=== PATIENT | female | born 1990 | race Two or more races ===

== ENCOUNTER 2023-10-06 12:37 | Emergency (ER) | payer MEDICAID, SELFPAY ==
--- NOTE | ~2023-10-06 | US_ITS ---
EXAMINATION: US OB <=14 wk fetus w TV DATE: 10/06/2023 INDICATION: Bleeding during first trimester TECHNIQUE: Real-time pelvic ultrasound utilizing both a transvaginal and transabdominal probe was pe rformed. The interpreting radiologist was not present for the study. COMPARISON: None. FINDINGS: The uterus measures 10.9 x 7.1 x 8.7 cm. There is an intrauterine gestational sac. A single po le is identified with crown rump length measuring 2.4 cm, which correlates with an estimated gestatio nal age of 9 weeks and 0 days. heart motion is identified measuring 182 beats per minute (bpm) by M-mode Doppler. 2.9 x 2.1 x 1.2 cm hypoechoic region extend caudally from the gestational sac like ly representing a small subchorionic hematoma with blood extending into the endometrial canal. The right ovary measures 3.6 x 2.3 x 3.6 cm. The left ovary measures 3.8 x 1.9 x 2.5 cm. Vascular jd w identified in both ovaries on color Doppler. There is trace amount of anechoic free fluid around th e right ovary. IMPRESSION: 1. Single living fetus with heart rate of 182 bpm. 2. Gestational age by ultrasound of 9 weeks 0 day(s) +/- 6 day(s) with ultrasound estimated date of delivery (DEANGELO) of 05/10/2024. 3. Likely small subchorionic hematoma along the caudal margin of the gestational sac contiguous with some blood in the more caudal endometrial canal. Reviewed, dictated and finalized at location A. IMPRESSION: 1. Single living fetus with heart rate of 182 bpm. 2. Gestational age by ultrasound of 9 weeks 0 day(s) +/- 6 day(s) with ultraso und estimated date of delivery (DEANGELO) of 05/10/2024. 3. Likely small subchorionic hematoma along the caudal margin of the gestationa l sac contiguous with some blood in the more caudal endometrial canal.
[2023-10-06 12:39] VITALS: BP 102/64; PULSE 88; RESP 16; TEMP 36.3; O2SAT 100
[2023-10-06 14:06] LABS: Basophils Percent Auto 0.5 % (0.2-1.2); Eosinophils Absolute Auto 0.3 K/mm3 (0-0.3); Eosinophils Percent Auto 3.9 % (0-4.4); Hematocrit 36.5 % (37.0-47.0); Hemoglobin 12.5 g/dL (12.0-15.0); Immature Granulocyte Absolute 0.02 K/mm3 (0.00-0.031); Immature Granulocyte Percent A 0.3 % (0-0.5); Lymphocytes Absolute Auto 2.05 K/mm3 (0.9-3.2); Lymphocytes Percent Auto 25.8 % (18.3-44.2); Mean Corpuscular HGB Conc 34.2 g/dl (32-36); Mean Corpuscular Hemoglobin 31.3 pg (26-34); Mean Corpuscular Volume 91.3 fl (80-100); Mean Platelet Volume 11.4 fl (7.4-10.4); Monocytes Absolute Auto 0.5 K/mm3 (0.1-0.6); Monocytes Percent Auto 6.3 % (2.6-8.5); Neutrophils Percent Auto 63.2 % (45.5-73.1); Platelet Count Result 232 k/mm3 (150-375); Red Cell Distribution Width 12.2 % (11.5-14.5)
[2023-10-06 14:22] LABS: INR 1.1; Prothrombin Time 14.4 Seconds (11.1-14.7)
[2023-10-06 14:23] LABS: Alanine Aminotransferase 10 U/L (6-35); Albumin Level 4.1 g/dL (3.5-5.1); Alkaline Phosphatase 47 U/L (38-126); Anion Gap 10 mmol/L (4-12); Aspartate Amino Transferase 18 U/L (14-36); Bilirubin,Total 0.4 mg/dL (0.2-1.3); Blood Urea Nitrogen 8 mg/dL (7-17); Calcium 8.7 mg/dL (8.4-10.2); Carbon Dioxide 20 mmol/L (22-30); Chloride 103 mmol/L (98-107); Estimated CRCL calculation 130 ml/min; Estimated Glomerular Filt Rate > 60; Glucose 93 mg/dL (65-110); Sodium 133 mmol/L (137-145)
[2023-10-06 14:24] LABS: Partial Thromboplastin Time 27.7 Seconds (22.3-36.8)
--- NOTE | 2023-10-06 14:27 | ED.PREGNANCY ---
HPI - General Chief complaint: Vaginal Bleeding Stated complaint: 10 weeks , vaginal bleeding Time Seen by Provider: 10/06/23 13:39 Source: patient Mode of arrival: ambulatory Limitations: no limitations History of Present Illness HPI Narrative: This is a 33 year old female that presents to the ER for vaginal spotting. Reports she is about 10 weeks . Has had some spotting the last week. She does not have an OB yet this . She has had an US prior to having spotting. Denies fever, abdominal pain, vomiting. Related Data Home Medications Medication Instructions Recorded Confirmed No Home Medications 10/06/23 10/06/23 Allergies Allergy/AdvReac Type Severity Reaction Status Date / Time No Known Allergies Allergy Verified 10/06/23 14:11 Review of Systems Review of Systems: CONSTITUTIONAL: Denies fever GASTROINTESTINAL: Denies abdominal pain, nausea, vomiting GENITOURINARY: Denies dysuria All systems reviewed & are unremarkable except as noted in HPI and below PMFSH Past Medical History Medical History (Updated 10/06/23 @ 17:00 by Martha Mcdonald PA-C) No active medical problems Social History Social History (Updated 10/06/23 @ 14:34 by Martha Mcdonald PA-C) Smoking status: Never smoker Exam Narrative: GENERAL: Well-appearing, well-nourished, and in no acute distress. HEAD: Normocephalic, atraumatic. EYES: EOMI. CHEST: Clear to auscultation. No respiratory distress. No wheezes rales or rhonchi HEART: Regular rate and rhythm. No murmur heard. Normal peripheral pulses. ABDOMEN: Soft, nontender, nondistended, normal active bowel sounds. EXTREMITIES: Normal range of motion. No edema. SKIN: Warm, dry, no rash. NEURO: No focal deficits. Alert and oriented x3. PSYCH: Normal mood and affect Course Course Emergency Course: Patient and family updated on workup and agree with plan of care Vital Signs Vital signs: Vital Signs Temperature 97.3 F L 10/06/23 12:39 Pulse Rate 88 10/06/23 12:39 Respiratory Rate 16 10/06/23 12:39 Blood Pressure 102/64 10/06/23 12:39 Pulse Oximetry 100 10/06/23 12:39 Oxygen Delivery Room Air 10/06/23 12:39 Temperature 97.3 F L 10/06/23 12:39 Pulse Rate 88 10/06/23 12:39 Respiratory Rate 16 10/06/23 12:39 Blood Pressure 102/64 10/06/23 12:39 Pulse Oximetry 100 10/06/23 12:39 Oxygen Delivery Room Air 10/06/23 12:39 MDM - OB/Uterine Contractions MDM Narrative Medical decision making narrative: Patient presents to the emergency department for vaginal spotting in first-trimester . Her vitals are stable. Hemoglobin is normal. Patient is A positive. Quantitative beta HCG 226, 480. Obstetric ultrasound shows a single living fetus with heart rate of 182. Also a small subchorionic hemorrhage. Patient updated on workup and agrees with plan of care. Will be given follow-up with OB. She was given warnings to return to the ER Differential Diagnosis Differential diagnosis: Likely other (Threatened miscarriage, miscarriage, subchorionic hemorrhage) Lab Data Attestation: I reviewed the patient's lab results. 10/06/23 13:58 10/06/23 13:58 Labs: Lab Results 10/06/23 Range/Units 13:58 WBC 8.0 (4.5-10.0) K/mm3 RBC 4.00 L (4.2-5.4) M/mm3 Hgb 12.5 (12.0-15.0) g/dL Hct 36.5 L (37.0-47.0) % MCV 91.3 (80-100) fl MCH 31.3 (26-34) pg MCHC 34.2 (32-36) g/dl RDW 12.2 (11.5-14.5) % Plt Count 232 (150-375) k/mm3 MPV 11.4 H (7.4-10.4) fl Immature Gran % (Auto) 0.3 (0-0.5) % Neut % (Auto) 63.2 (45.5-73.1) % Lymph % (Auto) 25.8 (18.3-44.2) % [place] % (Auto) 6.3 (2.6-8.5) % Eos % (Auto) 3.9 (0-4.4) % Baso % (Auto) 0.5 (0.2-1.2) % Lymph # (Auto) 2.05 (0.9-3.2) K/mm3 [place] # (Auto) 0.5 (0.1-0.6) K/mm3 Eos # (Auto) 0.3 (0-0.3) K/mm3 Baso # (Auto) 0.0 (0.0-0.1) K/mm3 Abs Immat Gran (auto) 0.02 (0.00-0.031
[2023-10-06 17:14] VITALS: BP 98/62; PULSE 64; RESP 16; O2SAT 100
== END 2023-10-06 17:15 | disposition home or self-care (01) ==
PROVIDERS: Emergency Provider Physician Assistant
DX: O20.9 Hemorrhage in early pregnancy, unspecified (principal); Z3A.09 9 weeks gestation of pregnancy
CPT/HCPCS: 36415; 76801; 76817; 80053; 84702; 85025; 85461; 85610; 85730; 86850; 86900; 86901; 99284

== ENCOUNTER 2024-04-14 14:00 | Outpatient (CLI) | payer MEDICAID, SELFPAY ==
--- NOTE | 2024-04-14 14:15 | ECG_ITS ---
Test Date: 2024-04-14 14:26:09 Measurements Intervals [place] Rate: 94 P: 43 TX: 125 QRS: 42 QRSD: 78 T: 27 QT: 350 QTc: 438 Interpretive Statements SINUS RHYTHM No previous ECG available for comparison Electronically Signed On 04-14-2024 14:34:54 [employer] by Orquidea Mills
== END 2024-04-14 14:01 | disposition home or self-care (01) ==
PROVIDERS: Visit Provider Obstetrics & Gynecology
DX: R00.2 Palpitations (principal)
CPT/HCPCS: 93005

== ENCOUNTER 2024-05-03 13:15 | Outpatient (CLI) | payer OTHER, SELFPAY ==
[2024-05-03 13:36] LABS: Hematocrit 34.8 % (37.0-47.0); Hemoglobin 11.3 g/dL (12.0-15.0); Mean Corpuscular HGB Conc 32.5 g/dl (32-36); Mean Corpuscular Hemoglobin 29.7 pg (26-34); Mean Corpuscular Volume 91.6 fl (80-100); Platelet Count Result 179 k/mm3 (150-375); Red Cell Distribution Width 13.8 % (11.5-14.5)
[2024-05-04 06:39] LABS: Rapid Plasma Reagin Non-Reactive (NonReactive)
== END 2024-05-03 13:16 | disposition home or self-care (01) ==
LOC: ANHLAB 13:18
PROVIDERS: Visit Provider Obstetrics & Gynecology
DX: Z34.93 Encounter for supervision of normal pregnancy, unspecified, third trimester (principal); Z3A.00 Weeks of gestation of pregnancy not specified
CPT/HCPCS: 36415; 85027; 86592; 86850; 86900; 86901

== ENCOUNTER 2024-05-04 05:46 | Inpatient (IN) | payer MEDICAID, SELFPAY ==
--- NOTE | 2024-05-02 15:39 | HP_ITS ---
This report was moved to the correct visit on 05/09/2024. The original report was signed by Gokul Almazan MD on 05/02/24 1539. H&P: HPI History of Present Illness Date/Time: 05/02/24 15:37 Chief Complaint: Term with previous section Narrative: 34-year-old 2 para 1 at39+ weeks gestation for repeat section. has been uncomplicated. She has had previous section. Risks and benefits reviewed Review of Systems Review of Systems: CONSTITUTIONAL: Denies fever GASTROINTESTINAL: Denies abdominal pain, nausea, vomiting GENITOURINARY: Denies dysuria All systems reviewed & are unremarkable except as noted in HPI and below PMFSH Past Medical History Medical History No active medical problems Social History Social History Smoking status: Never smoker Meds Home Medications and Allergies Home Medications ?Medication ?Instructions ?Recorded ?Confirmed ?Type No Home Medications 10/06/23 10/06/23 History Allergies Allergy/AdvReac Type Severity Reaction Status Date / Time No Known Allergies Allergy Verified 10/06/23 14:11 Exam Const: General: cooperative, healthy appearing and comfortable Nutritional Appearance: average body habitus Orientation/consciousness: oriented to person, oriented to place and oriented to time HENMT: Head: normal to inspection Resp: Effort & Inspection: normal respiratory effort Cardio: Rate: regular rate Rhythm: regular rhythm Heart sounds: S1 normal heart sound present and S2 normal heart sound present GI: Inspection: normal to inspection (Gravid soft uterus) : Speculum Exam - Vagina: normal appearance of the vagina Speculum Exam - Cervix: normal appearance of the cervix Bimanual exam- vagina & uterus: enlarged (Soft gravid uterus) Assessment and Plan Assessment and plan (1) Term : Code(s): Z34.90 - Encounter for supervision of normal , unspecified, unspecified trimester Status: Acute (2) Previous section: Code(s): Z98.891 - History of uterine scar from previous surgery Status: Acute Plan Proceed with repeat low-transverse section Please be advised this is a medical document. It is intended for [id number] communication. It is written in medical language and may contain unfamiliar abbreviations or verbiage. Medical documents are intended to carry relevant information, facts as evident, and the clinical opinion of the practitioner at the time of the encounter. This report may have been done utilizing a voice recognition system. Attempts have been made to correct errors. However, there may be uncorrected grammatical, spelling, and recognition errors present. The file time of this note does not necessarily represent the time the patient was seen. Report Initialized date/time: Gokul Almazan MD 05/02/241538 Electronically signed by: Gokul Almazan MD 05/02/241538 [facility]
[2024-05-04] VITALS (45 sets, daily range): BP systolic 95–148; BP diastolic 60–118; PULSE 64–121; RESP 12–18; TEMP 36.1–37.7; O2SAT 82–100; BMI 26.5
--- NOTE | 2024-05-04 06:21 | WPDHPUPDATE1 ---
History and Physical Update Update Date/Time: 05/04/24 06:21 History and Physical has been reviewed, including an updated exam of the patient. There are NO changes in the patient's condition. Risks, benefits, and alternatives have been discussed and questions answered. Patient agrees to proceed with procedure.
[2024-05-04] MEDS: ACETAMINOPHEN 500 MG TABLET 1000 MG PO (06:22)
[2024-05-04] MEDS: LACTATED RINGERS 1,000 ML 125 ML IV CONT ×2 (06:22→07:14)
[2024-05-04 07:25] LABS: HIV 1/2 Ab P24 Ag Result Negative (Negative)
[2024-05-04] MEDS: ONDANSETRON INJ 4 MG/2 ML VIAL IV PUSH (07:25)
[2024-05-04] MEDS: FAMOTIDINE 20 MG/2 ML VIAL IV PUSH (07:25)
[2024-05-04] MEDS: ceFAZolin 2 GM/D5W 50 ML 2 GM/50 ML BAG IVPB (07:33)
--- NOTE | 2024-05-04 08:26 | W.PM.OBCSD ---
OB - Delivery Note Procedure Delivery date: 05/04/24 Pre-op diagnosis: Previous Delivery Post-op Diagnosis: Same Induction method: None Delivery monitor: External FHT Prior to decision for section, ACOG/SMFM labor guidelines were considered and discussed with the patient and staff. Decision made to proceed with the section.: Yes Procedure Performed: Repeat Surgeon: Gokul Contreras MD Anesthesia type: Spinal Description of Procedure/Findings: The patient was prepped draped in the normal sterile fashion placed in a supine position. Under excellent spinal anesthetic the abdomen was entered through previous Pfannenstiel incision. This was carried to the fascia the fascia was opened upward outward fashion bilaterally. Underlying lower muscles sharply dissected. Parietal peritoneum 0 by Rosemarie clamps and by sharp dissection carried superiorly and inferiorly dome of the bladder. Bladder blade placed and bladder flap formed. Bladder blade returned a low transverse incision made the head delivered the JULIENNE position. Anterior posterior shoulder delivered spontaneously. Cord clamped was cut and passed off the table with an excellent cry. Placenta delivered intact manually uterus delivered from the abdomen wrapped in a moist towel. After assuring no membranes or debris uterus, the uterus was closed with continuous running for lateral edge to lateral edge this was followed by 2nd imbricating running locking 0 Vicryl from lateral edge to lateral edge hemostasis was assured. Ovaries and tubes appeared within normal limits in the uterus returned to the abdomen. After inspecting the ovaries and tubes to be normal. Laps removed and accounted for. The fascia closed with continuous running 0 Vicryl from lateral edge to lateral edge. Irrigation subcutaneous layer and the skin closed with 4-0 Monocryl and glue QBL was 300cc. All sponge, needle, instrument counts were correct. There were no immediate complications Estimated Blood Loss: 300 Drains: No Packing: No Pathology: None sent Complications: No immediate complications Condition: Stable Disposition: PACU Baby Date of : 05/04/24 Time of : 08:01 Gestational Age by Date: 39 gender: Female Weight (pounds): 7 Weight (ounces): 0 presentation: vertex position: Right Occiput Anterior Placenta delivery description: Manual Removal Cord Vessel Description: 3 Vessels score one minute: 8 score five minutes: 9
--- NOTE | 2024-05-04 08:28 | P.DS_ITS ---
<Statement entered by Gokul Contreras MD - 05/09/24 06:46> This documentation has been reviewed and approved. DS: Admitting Diagnosis Discharge Date 05/07/2024 Admitting Diagnosis Term /previous section DS: Discharge Diagnosis Discharge Diagnosis (1) Term : Code(s): Z34.90 - Encounter for supervision of normal , unspecified, unspecified trimester Status: Acute (2) Previous section: Code(s): Z98.891 - History of uterine scar from previous surgery Status: Acute DS: Summary Hospital Course Reason for hospitalization: Patient was admitted for repeat section on 05/04/2024. Hospital Course: The patient's hospital course unremarkable. She remained afebrile. She was up, voiding without difficulty, eating regular diet, ambulating, and generally without complaints. Time Spent with Patient Time attestation: Total time spent providing and/or coordinating discharge services: Exam Const: General: cooperative, healthy appearing and comfortable Nutritional Appearance: average body habitus Orientation/consciousness: oriented to person, oriented to place and oriented to time Resp: Effort & Inspection: normal respiratory effort Cardio: Rate: regular rate Rhythm: regular rhythm Heart sounds: S1 normal heart sound present and S2 normal heart sound present GI: Inspection: normal to inspection and incision (Wound clean dry and intact) DS: Data Data Completed and Pending Labs on day of discharge: Labs from last 24 hours 05/04/24 06:07 HIV 1&2 Ab/P24 Ag 4thGn Negative Discharge Plan Discharge Attending physician on discharge: Gokul Almazan Discharging Clinician: Kaya Liang Patient Disposition: Home, Self-Care Activity: may shower, may drive after 2 weeks and pelvic rest Diet: regular Wound Care Instructions: incision open to air Discharge Instructions: Education: Mom and Baby Guide Given to: Mother Follow-Up: Call your delivering provider's office for an appointment to be seen in: call your OB to schedule your follow up appointmemt Mom [facility] follow-up appointment. Appointment Date/Time: May 10, 2024 at 10:00 am What to expect at your follow-up visit: Blood Pressure Check Physical Assessment Call [phone] if you are unable to keep your appointment time. BREAST CARE: * Wear a snug supportive bra. * For engorgement discomfort: Breast Feeding: * Apply warm moist washcloths * Express milk as needed to relieve engorgement * Wear loose clothing Bottle Feeding: * May apply ice packs * For sore nipples: * Identify correct latch-on * Apply warm moist washcloths before and after nursing * Air dry nipples after nursing * May apply Lansinoh cream to nipples ABDOMINAL INCISION: (if applicable) * Allow incision to air dry * Do NOT use lotions for powders on your incision * When showering, allow soap and water to run over the incision, but do not wash incision PERINEAL CARE: * Until bleeding stops, use your luly bottle after urinating * Change your pad frequently throughout the day * You may take sitz baths several times a day (fill your bathtub with warm water and soak for 20 minutes.) Do NOT bathe in the water * No tub baths until seen by your physician - You may shower ACTIVITY: * Rest as much as possible. * Do not exercise or lift anything heavier than your baby (such as laundry or other children.) * Avoid stairs or driving as much as possible. * Do not put anything into the vagina. No douching, tampons, or sexual activity until seen by physician. NOTIFY PHYSICIAN IF YOU HAVE ANY QUESTIONS OR IF ANY OF THE FOLLOWING SYMPTOMS OCCUR: * If your incision becomes red, swollen, or more painful than what you have experienced in the hospital. * If your vaginal bleeding becomes foul smelling. * If your vaginal bleeding becomes more heavy than a period or if your bleeding changes from pink to bright red. However, you may pass an occasional walnut- sized clot once or twice for the first week . * If you experience a sharp, shooting pain in you calves. * If you discover a hard, reddened area on your breast or if you experience flu- like symptoms. DIET: * Eat regular, well-balanced meals. * Drink plenty of fluids daily. If , drink to thirst.Call or return if temperature above 100.4? F, increased abdominal pain, increased vaginal bleeding or any new problems. OK to take calcium and magnesium. Ok to take Tylenol as bottle instructs. Continue vitamin and Vitamin D. Patient Language: Moldovan Stand Alone Forms: General Discharge Information Follow-up/Referrals: Gokul Almazan MD [Physician] - 4 Weeks Discharge Medications: New hydrocodone-acetaminophen 5-325 mg tablet 1 tablet PO Q4H PRN (Reason: pain) Qty: 20 0RF ibuprofen 600 mg tablet 600 mg PO Q6H PRN (Reason: cramps) Qty: 30 0RF ferrous sulfate 325 mg (65 mg iron) tablet 325 mg PO DAILY Qty: 30 0RF No Action No Home Medications Date of admission: 05/04/24 05:46 Primary Care Provider: UNKNOWN,DOCTOR Admitting Provider: Gokul Almazan Attending physician on admission: Gokul Almazan Condition: Stable
[2024-05-04] MEDS: OXYTOCIN 30 UNITS/NS 500 ML 30 UNITS/500 ML BAG 125 UNITS IV CONT (10:02)
--- NOTE | 2024-05-04 11:30 | PC.NURSE ---
Patient newly admitted to . Requested assistance with . When entering the room, mom is supine with baby side-lying and baby is latched and suckling. Baby is vigorous and does sometimes get distracted by her hands. The latch is off and on but mom says it is not painful and baby easily returns to the breast after trying to suck on her hands. Mom did breastfeed her first baby. Encouraged mom to allow baby as much access to the breast as desired and that baby can feed at the breast for as long as she likes. If baby sleeps longer than three hours, mom is instructed to place baby skin to skin and wake her to feed. Name and number on communication board. Reported to primary RN.
[2024-05-04] MEDS: ACETAMINOPHEN 325 MG TABLET 650 MG PO ×2 (13:01→19:41)
[2024-05-04] MEDS: SIMETHICONE 80 MG TAB.CHEW PO ×2 (13:01→19:41)
[2024-05-04] MEDS: KETOROLAC 15 MG/ML VIAL (*BKC) IV PUSH ×2 (13:01→19:41)
--- NOTE | 2024-05-04 17:30 | PC.NURSE ---
Parents requested assistance with feeding. Baby has been sleeping and it has been 4 hours since the last . Mom has baby swaddled on her chest so we moved her to the crib, unwrapped and changed a diaper. Baby woke easily and rooted. She was placed on the left breast in laid back and latched with minimal assistance from mom. She suckled vigorously and consistently. Encouraged keeping baby awake for at least 15 minutes. Parents educated on the diaper lines that turn blue with urine. After for 25 minutes, dad was shown how to swaddle baby and reapply her hat. She also had another wet diaper. Parents asked about burping and we discussed that it should be tried for a minute or two but if baby doesn't burp that is ok. There is some language barrier but with concise and slow education, both parents were able to understand and acknowledge the education provided. Reported to primary RN.
[2024-05-05 00:29] VITALS: BP 102/64; PULSE 79; RESP 14; TEMP 36.7; O2SAT 100
[2024-05-05] MEDS: KETOROLAC 15 MG/ML VIAL (*BKC) IV PUSH ×2 (01:43→08:18)
[2024-05-05] MEDS: ACETAMINOPHEN 325 MG TABLET 650 MG PO ×4 (01:44→20:46)
[2024-05-05 03:30] VITALS: BP 98/70; PULSE 73; RESP 18; TEMP 37.2; O2SAT 99
[2024-05-05] MEDS: LIDOCAINE 5% PATCH 1 PATCH TRANSDERM (05:20)
[2024-05-05 05:34] LABS: Basophils Percent Auto 0.2 % (0.2-1.2); Eosinophils Absolute Auto 0.2 K/mm3 (0-0.3); Eosinophils Percent Auto 2.3 % (0-4.4); Hematocrit 30.8 % (37.0-47.0); Hemoglobin 9.9 g/dL (12.0-15.0); Immature Granulocyte Absolute 0.05 K/mm3 (0.00-0.031); Immature Granulocyte Percent A 0.6 % (0-0.5); Lymphocytes Absolute Auto 1.45 K/mm3 (0.9-3.2); Lymphocytes Percent Auto 17.3 % (18.3-44.2); Mean Corpuscular HGB Conc 32.1 g/dl (32-36); Mean Corpuscular Hemoglobin 29.6 pg (26-34); Mean Corpuscular Volume 91.9 fl (80-100); Mean Platelet Volume 11.9 fl (7.4-10.4); Monocytes Absolute Auto 0.6 K/mm3 (0.1-0.6); Monocytes Percent Auto 7.4 % (2.6-8.5); Neutrophils Absolute Auto 6.1 K/mm3 (1.3-6.7); Neutrophils Percent Auto 72.2 % (45.5-73.1); Platelet Count Result 162 k/mm3 (150-375); Red Blood Count 3.35 M/mm3 (4.2-5.4); Red Cell Distribution Width 13.7 % (11.5-14.5); White Blood Count 8.4 K/mm3 (4.5-10.0)
[2024-05-05 07:26] VITALS: BP 105/67; PULSE 71; RESP 15; TEMP 36.7; O2SAT 100
[2024-05-05] MEDS: DOCUSATE SODIUM 100 MG CAPSULE PO ×2 (08:19→17:27)
[2024-05-05] MEDS: MULTIVIT/MIN/PREN/FOL AC/IRON TABLET 1 TAB PO (08:19)
[2024-05-05] MEDS: SIMETHICONE 80 MG TAB.CHEW PO ×3 (08:19→17:27)
[2024-05-05] MEDS: POLYSACCHARIDE IRON COMPLEX 150 MG CAPSULE PO ×2 (08:19→17:27)
--- NOTE | 2024-05-05 11:09 | WPDANLDPN2 ---
Anes-Prog Note L&D Date/Time: 05/05/24 11:09 Comfortable throughout: section Neuraxial method: spinal Epidural/Spinal procedure site: clean & non-tender Neuro status: Neuro function grossly intact. Cardiovascular status: normal Respiratory status: normal Airway patency: baseline Mental status: baseline Post-Op hydration status: normal Vital Signs: Last Vital Signs Temp 98.1 F 05/05/24 07:26 Pulse 71 05/05/24 07:26 Resp 15 05/05/24 07:26 BP 105/67 05/05/24 07:26 Pulse Ox 100 05/05/24 07:26 O2 Del Method Room Air 05/04/24 10:45 Pain score (VAS): 0/10 I/O: Intake & Output 05/04/24 05/05/24 05/05/24 23:59 07:59 15:59 Intake Total 500 Output Total 1700 Balance -1200 Post-procedural complaints: none Patient feedback: Patient satisfied with anesthetic care.
--- NOTE | 2024-05-05 11:10 | WPDANLDNPN2 ---
Anes-Prog Note L&D-Neuraxial Date/Time: 05/05/24 11:10 Neuraxial medications: intrathecal PF morphine Opiod-related complaints: none Patient feedback: Patient satisfied with post-operative pain management.
--- NOTE | 2024-05-05 11:53 | P.PNOB_ITS ---
OB - PN: Subj Subjective Date/time seen: 05/05/24 11:53 Narrative: Pain OK. Tolerating diet. OB - PN: Obj Data Labs 05/05/24 03:34 Labs: Laboratory Results - last 24 hr 05/05/24 03:34 WBC 8.4 RBC 3.35 L Hgb 9.9 L Hct 30.8 L MCV 91.9 MCH 29.6 MCHC 32.1 RDW 13.7 Plt Count 162 MPV 11.9 H Immature Gran % (Auto) 0.6 H Neut % (Auto) 72.2 Lymph % (Auto) 17.3 L [place] % (Auto) 7.4 Eos % (Auto) 2.3 Baso % (Auto) 0.2 Lymph # (Auto) 1.45 [place] # (Auto) 0.6 Eos # (Auto) 0.2 Baso # (Auto) 0.0 Abs Immat Gran (auto) 0.05 H Absolute Neuts (auto) 6.1 Absolute Nucleated RBC 0.000 Nucleated RBC % 0.0 OB - PN A/P Assessment and Plan (1) delivery delivered: Code(s): O82 - Encounter for delivery without indication Status: Acute (2) Previous section: Code(s): Z98.891 - History of uterine scar from previous surgery Status: Acute Plan day: 1 Comments: A: POD#1, doing well. P: Routine care. Exam 2 Narrative: AVSS I/O OK ABD soft, nontender, fundus firm. Incision c/d/i. EXT nontender
--- NOTE | 2024-05-05 12:02 | P.DS_ITS ---
DS: Admitting Diagnosis Discharge Date 05/07/24 <Kaya Liang MD - Last Filed: 05/07/24 11:08> Admitting Diagnosis IUP at term Prior <Oz Mauricio MD - Last Filed: 05/05/24 12:04> DS: Discharge Diagnosis Discharge Diagnosis (1) delivery delivered: Code(s): O82 - Encounter for delivery without indication <Oz Mauricio MD - Last Filed: 05/05/24 12:04> Status: Acute <Oz Mauricio MD - Last Filed: 05/05/24 12:04> OB - DS: Summary OB Procedures : None <Oz Mauricio MD - Last Filed: 05/05/24 12:04> OB Procedures Intrapartum: <Oz Mauricio MD - Last Filed: 05/05/24 12:04> OB Procedures: : None <Oz Mauricio MD - Last Filed: 05/05/24 12:04> Peripartum Data Procedures: Procedures Operation Date: 05/04/24 07:30 Actual Procedure Side Surgeon p Section Gokul Contreras MD <Oz Mauricio MD - Last Filed: 05/05/24 12:04> Time Spent with Patient Time attestation: Total time spent providing and/or coordinating discharge services: <Oz Mauricio MD - Last Filed: 05/05/24 12:04> DS: Data Data Completed and Pending Labs on day of discharge: Labs from last 24 hours 05/05/24 03:34 WBC 8.4 RBC 3.35 L Hgb 9.9 L Hct 30.8 L MCV 91.9 MCH 29.6 MCHC 32.1 RDW 13.7 Plt Count 162 MPV 11.9 H Immature Gran % (Auto) 0.6 H Neut % (Auto) 72.2 Lymph % (Auto) 17.3 L [place] % (Auto) 7.4 Eos % (Auto) 2.3 Baso % (Auto) 0.2 Lymph # (Auto) 1.45 [place] # (Auto) 0.6 Eos # (Auto) 0.2 Baso # (Auto) 0.0 Abs Immat Gran (auto) 0.05 H Absolute Neuts (auto) 6.1 Absolute Nucleated RBC 0.000 Nucleated RBC % 0.0 <Oz Mauricio MD - Last Filed: 05/05/24 12:04> Discharge Plan Discharge Attending physician on discharge: Gokul Almazan <Oz Mauricio MD - Last Filed: 05/05/24 12:04> Gokul Almazan <Kaya Liang MD - Last Filed: 05/07/24 11:08> Discharging Clinician: Kaya Liang <Oz Mauricio MD - Last Filed: 05/05/24 12:04> Kaya Liang <Kaya Liang MD - Last Filed: 05/07/24 11:08> Patient Disposition: Home, Self-Care <Oz Mauricio MD - Last Filed: 05/05/24 12:04> Activity: may shower, may drive after 2 weeks and pelvic rest <Oz Mauricio MD - Last Filed: 05/05/24 12:04> may shower, may drive after 2 weeks and pelvic rest <Kaya Liang MD - Last Filed: 05/07/24 11:08> Diet: regular <Oz Mauricio MD - Last Filed: 05/05/24 12:04> regular <Kaya Liang MD - Last Filed: 05/07/24 11:08> Wound Care Instructions: incision open to air <Oz Mauricio MD - Last Filed: 05/05/24 12:04> incision open to air <Kaya Liang MD - Last Filed: 05/07/24 11:08> Discharge Instructions: Education: Mom and Baby Guide Given to: Mother Follow-Up: Call your delivering provider's office for an appointment to be seen in: call your OB to schedule your follow up appointmemt Mom and baby should come to the [facility] for the follow-up appointment. Appointment Date/Time: May 10, 2024 at 10:00 am What to expect at your follow-up visit: Blood Pressure Check Physical Assessment Call [phone] if you are unable to keep your appointment time. BREAST CARE: * Wear a snug supportive bra. * For engorgement discomfort: Breast Feeding: * Apply warm moist washcloths * Express milk as needed to relieve engorgement * Wear loose clothing Bottle Feeding: * May apply ice packs * For sore nipples: * Identify correct latch-on * Apply warm moist washcloths before and after nursing * Air dry nipples after nursing * May apply Lansinoh cream to nipples ABDOMINAL INCISION: (if applicable) * Allow incision to air dry * Do NOT use lotions for powders on your incision * When showering, allow soap and water to run over the incision, but do not wash incision PERINEAL CARE: * Until bleeding stops, use your luly bottle after urinating * Change your pad frequently throughout the day * You may take sitz baths several times a day (fill your bathtub with warm water and soak for 20 minutes.) Do NOT bathe in the water * No tub baths until seen by your physician - You may shower ACTIVITY: * Rest as much as possible. * Do not exercise or lift anything heavier than your baby (such as laundry or other children.) * Avoid stairs or driving as much as possible. * Do not put anything into the vagina. No douching, tampons, or sexual activity until seen by physician. NOTIFY PHYSICIAN IF YOU HAVE ANY QUESTIONS OR IF ANY OF THE FOLLOWING SYMPTOMS OCCUR: * If your incision becomes red, swollen, or more painful than what you have experienced in the hospital. * If your vaginal bleeding becomes foul smelling. * If your vaginal bleeding becomes more heavy than a period or if your bleeding changes from pink to bright red. However, you may pass an occasional walnut- sized clot once or twice for the first week . * If you experience a sharp, shooting pain in you calves. * If you discover a hard, reddened area on your breast or if you experience flu- like symptoms. DIET: * Eat regular, well-balanced meals. * Drink plenty of fluids daily. If , drink to thirst.Call or return if temperature above 100.4? F, increased abdominal pain, increased vaginal bleeding or any new problems. OK to take calcium and magnesium. Ok to take Tylenol as bottle instructs. Continue vitamin and Vitamin D. <Oz Mauricio MD - Last Filed: 05/05/24 12:04> Patient Language: Syriac <Oz Mauricio MD - Last Filed: 05/05/24 12:04> Stand Alone Forms: General Discharge Information <Oz Mauricio MD - Last Filed: 05/05/24 12:04> Follow-up/Referrals: Gokul Almazan MD [Physician] - 4 Weeks <Oz Mauricio MD - Last Filed: 05/05/24 12:04> Discharge Medications: New hydrocodone-acetaminophen 5-325 mg tablet 1 tablet PO Q4H PRN (Reason: pain) Qty: 20 0RF ibuprofen 600 mg tablet 600 mg PO Q6H PRN (Reason: cramps) Qty: 30 0RF ferrous sulfate 325 mg (65 mg iron) tablet 325 mg PO DAILY Qty: 30 0RF No Action No Home Medications <Oz Mauricio MD - Last Filed: 05/05/24 12:04> Date of admission: 05/04/24 05:46 <Oz Mauricio MD - Last Filed: 05/05/24 12:04> Primary Care Provider: UNKNOWN,DOCTOR <Oz Mauricio MD - Last Filed: 05/05/24 12:04> Admitting Provider: Gokul Almazan <Oz Mauricio MD - Last Filed: 05/05/24 12:04> Attending physician on admission: Gokul Almazan <Oz Mauricio MD - Last Filed: 05/05/24 12:04> Condition: Stable <Oz Mauricio MD - Last Filed: 05/05/24 12:04>
[2024-05-05] MEDS: IBUPROFEN 600 MG TABLET PO ×2 (14:34→20:46)
--- NOTE | 2024-05-05 15:00 | PC.NURSE ---
1445. Mother verbalizes she is able to independently latch infant with appropriate positioning and alignment. She denies any nipple discomfort and is responsively . is currently meeting outcomes for weight, output, jaundice, blood sugar and feeding frequencies of 8-12 times in 24 hours. Mother declines any additional assistance or education at this time. Mother is encouraged to call for assistance if her doesn?t latch, pain with latching, questions or concerns. Mother voiced understanding of information shared along with the mom/baby guide for an additional resource. Mom requests a breast pump to take home thru insurance. We discussed the 2 options available and she chose a Zomee pump. Instructions given on cleaning, care, usage, that there should be no pain, pumping schedule for milk production, collection, and storage of human milk. Patient was assessed for correct placement,& flange size.?Mother voiced understanding of the education shared along with mom/baby guide and the pump measurement, flange fit handout for additional resource information. Reported to the Primary RN.
--- NOTE | 2024-05-05 15:54 | PC.NURSE ---
On 05/05/24, the [facility] student, Torin Hernandez, provided care and completed [facility] documentation on this patient. I have reviewed the student's documentation and agree with the findings.
[2024-05-05 20:32] VITALS: BP 110/77; PULSE 89; RESP 14; TEMP 36.7; O2SAT 100
[2024-05-06] MEDS: ACETAMINOPHEN 325 MG TABLET 650 MG PO ×4 (03:00→23:44)
[2024-05-06] MEDS: IBUPROFEN 600 MG TABLET PO ×4 (03:00→23:40)
--- NOTE | 2024-05-06 05:12 | P.PNOB_ITS ---
OB - PN: Subj Subjective Date/time seen: 05/06/24 05:12 Narrative: Pain OK. Tolerating diet. OB - PN: Obj Data Labs 05/05/24 03:34 Labs: Laboratory Results - last 24 hr 05/05/24 03:34 WBC 8.4 RBC 3.35 L Hgb 9.9 L Hct 30.8 L MCV 91.9 MCH 29.6 MCHC 32.1 RDW 13.7 Plt Count 162 MPV 11.9 H Immature Gran % (Auto) 0.6 H Neut % (Auto) 72.2 Lymph % (Auto) 17.3 L [place] % (Auto) 7.4 Eos % (Auto) 2.3 Baso % (Auto) 0.2 Lymph # (Auto) 1.45 [place] # (Auto) 0.6 Eos # (Auto) 0.2 Baso # (Auto) 0.0 Abs Immat Gran (auto) 0.05 H Absolute Neuts (auto) 6.1 Absolute Nucleated RBC 0.000 Nucleated RBC % 0.0 OB - PN A/P Plan Comments: A: POD#2, doing well. P: Routine care. Exam 2 Narrative: AVSS I/O OK ABD soft, nontender, fundus firm. Incision c/d/i. EXT nontender
[2024-05-06] MEDS: LIDOCAINE 5% PATCH 1 PATCH TRANSDERM (05:30)
--- NOTE | 2024-05-06 07:10 | PC.NURSE ---
Mother verbalizes she is able to independently latch with appropriate positioning and alignment. She denies any nipple discomfort and is responsively . Infant is currently meeting outcomes for weight, output, jaundice, blood sugar and feeding frequencies of 8-12 times in 24 hours. Mother declines any additional assistance or education at this time. Mother is encouraged to call for assistance if her infant doesn?t latch, pain with latching, questions or concerns. Mother voiced understanding of information shared along with the mom/baby guide for an additional resource. Reported to the Primary RN.
[2024-05-06] MEDS: MULTIVIT/MIN/PREN/FOL AC/IRON TABLET 1 TAB PO (08:24)
[2024-05-06] MEDS: DOCUSATE SODIUM 100 MG CAPSULE PO ×2 (08:25→16:13)
[2024-05-06] MEDS: SIMETHICONE 80 MG TAB.CHEW PO ×2 (08:25→14:55)
[2024-05-06] MEDS: POLYSACCHARIDE IRON COMPLEX 150 MG CAPSULE PO ×2 (08:25→16:13)
[2024-05-06 10:15] VITALS: BP 97/55; PULSE 74; RESP 16; TEMP 36.9; O2SAT 100
[2024-05-06 20:00] VITALS: BP 120/72; PULSE 72; PULSE 80; RESP 16; RESP 18; TEMP 36.8; O2SAT 100; O2SAT 99
[2024-05-07] MEDS: IBUPROFEN 600 MG TABLET PO ×3 (05:15→17:34)
[2024-05-07] MEDS: ACETAMINOPHEN 325 MG TABLET 650 MG PO ×2 (05:15→11:12)
[2024-05-07 08:30] VITALS: BP 107/79; PULSE 70; RESP 18; TEMP 36.6; O2SAT 100
[2024-05-07] MEDS: MULTIVIT/MIN/PREN/FOL AC/IRON TABLET 1 TAB PO (09:54)
[2024-05-07] MEDS: SIMETHICONE 80 MG TAB.CHEW PO ×3 (09:54→17:33)
[2024-05-07] MEDS: POLYSACCHARIDE IRON COMPLEX 150 MG CAPSULE PO ×2 (09:54→17:33)
[2024-05-07] MEDS: DOCUSATE SODIUM 100 MG CAPSULE PO ×2 (09:54→17:33)
--- NOTE | 2024-05-07 10:00 | PC.NURSE ---
Consulted with mother concerning needs and she shared her ability to independently latch infant optimally, per mother slightly painful right nipple with latch, pain decreases as baby latches deeper. Mother is feeding appropriately for growth of infant and understands stimulating to eat if needed. Infant has had appropriate feedings in the last 24 hours meets the outcomes for weight, output, blood sugar and jaundice at this time. Reinforced understanding of milk production, transition of milk, signs of adequate intake, transition of stool, prevention/relief of engorgement, plugged ducts, mastitis, responsive watching for feeding cues, the different methods of stimulating infant to breastfeed 1-3 hours after the start of the last feeding, community resources, and when to call a provider using the resource of the feeding sheet along with the mom and baby guide. Mother voiced understanding of the information shared, is confident to continue effectively her at home, when to call for assistance, denies any additional assistance or education at this time. Reported to the Primary RN.
--- NOTE | 2024-05-07 11:03 | P.PNOB_ITS ---
OB - PN: Subj Subjective Date/time seen: 05/07/24 11:03 Patient comments: no complaints and pain well controlled baby status: doing well OB - PN: Obj Data Labs 05/05/24 03:34 OB - PN A/P Plan day: 3 Plan: routine care and discharge home Time Spent With Patient Time: Total time spent is greater than 50% in coordination of care (as documented) at patient's floor/unit and/or counseling patient: Exam 2 Narrative: inc c/d/i : Bimanual exam- vagina & uterus: other (Uterus firm, nt @U)
[2024-05-07] MEDS: LIDOCAINE 5% PATCH 1 PATCH TRANSDERM (15:40)
[2024-05-10 10:42] VITALS: BP 120/76; PULSE 81; RESP 20; TEMP 37.1; O2SAT 100
== END 2024-05-07 17:39 | disposition home or self-care (01) | DRG 540 ==
LOC: ANHLDR 06:22 → ANHOB2 05-05 12:03 → ANHLDR 05-09 12:14
PROVIDERS: Admitting Provider Obstetrics & Gynecology; Visit Provider Obstetrics & Gynecology Gynecology
PROC: 10D00Z1 Extraction of Products of Conception, Low, Open Approach (ICD-10-PCS; CPT 59514; principal; 2024-05-04 07:30)
DX: O34.211 Maternal care for low transverse scar from previous cesarean delivery (principal); Z37.0 Single live birth; Z3A.39 39 weeks gestation of pregnancy
CPT/HCPCS: 36415; 85025; 86703; A9270; G0432; J0690; J1885; J2274; J2371; J2405; J2590; J7120

== ENCOUNTER 2024-05-14 23:03 | Emergency (ER) | payer OTHER, SELFPAY ==
[2024-05-14 23:04] VITALS: BP 115/53; PULSE 88; RESP 16; TEMP 36.9; O2SAT 100
--- NOTE | 2024-05-15 01:55 | ED_ITS ---
HPI - General Adult General Chief complaint: Wound/Laceration Stated complaint: BLEEDING FROM SURGERY 10 DAYS AGO Time Seen by Provider: 05/15/24 01:45 History of Present Illness HPI narrative: Patient is a 34-year-old female who presents emergency department this evening complaining of bleeding from her surgical site. Patient had an uncomplicated delivery [address] Casey Collier. States that she noticed bleeding from the site yesterday. Other than this, patient denies any symptoms including any abdominal pain, any complications with the wound otherwise, states that she has been doing well since the delivery and the baby is also doing well. No additional symptoms or concerns at this time. Related Data Home Medications ?Medication ?Instructions ?Recorded ?Confirmed ?Last Taken ?Type No Home Medications 10/06/23 10/06/23 Unknown History Allergies Allergy/AdvReac Type Severity Reaction Status Date / Time No Known Allergies Allergy Verified 05/04/24 06:00 Review of Systems Review of Systems: All systems are reviewed and are negative unless stated otherwise in the HPI. [facility] Past Medical History Medical History No active medical problems Social History Social History Smoking status: Never smoker Second hand tobacco smoke exposure: No Substance use: never Do You Feel Safe in your Home?: Yes Lack of Transportation: No Lack of Food: Never True Current Housing: I Have Housing Concerned About Future Housing: No Difficulty Paying Gas/Electric Bills: No Difficulty Paying for Meds: No Currently Unemployed: No Education: Master's Degree or Higher Difficulty w/ Childcare or Family Care: No Spiritual care concerns: No Exam 2 Narrative: General: Alert, awake, afebrile, in no acute distress. HEENT: PERRL, no rhinorrhea, no post nasal drip, oropharynx clear. Neck: Trachea midline, no JVD, no lymphadenopathy. Cardiovascular: Regular rate and rhythm, no murmurs, rubs or gallops, no peripheral edema. Respiratory: Clear to auscultation bilaterally, no tachypnea, no wheezing, no rhonchi, no rubs, no respiratory distress. Abdomen: Soft, nontender, nondistended, no rebound, no guarding, no peritoneal signs, scar appears to be healing well, no surrounding erythema or any pustular drainage, no evidence of infection, there is slight dehiscence of the wound to the far left of the incision site measuring approximately 4 mm with slight bleeding. Musculoskeletal: No joint swelling or deformity, normal muscle tone. Skin: No rashes or petechia, no signs of infection. Psychiatric: Alert and oriented, normal behavior and judgment for situation. Neurological: Alert and oriented to person, place, and time. Follows all commands. No focal deficits, speech is clear and fluent. Course Vital Signs Vital signs: Vital Signs Temperature 98.5 F 05/14/24 23:04 Pulse Rate 88 05/14/24 23:04 Respiratory Rate 16 05/14/24 23:04 Blood Pressure 115/53 L 05/14/24 23:04 Pulse Oximetry 100 05/14/24 23:04 Temperature 98.5 F 05/14/24 23:04 Pulse Rate 88 05/14/24 23:04 Respiratory Rate 16 05/14/24 23:04 Blood Pressure 115/53 L 05/14/24 23:04 Pulse Oximetry 100 05/14/24 23:04 Procedures Laceration Laceration 1: Date: 05/15/24 Time: 02:13 Site: other ( scar) Side (If applicable): left Size (cm): 0.4 Description: linear Depth: simple, single layer Local Anesthetic: lidocaine 1% Amount of anesthesia used (mL): 1 Pre-repair: wound explored, irrigated and wound margins revised ====== Skin Level ====== Skin layer closed with: vicryl Size (cm): 5-0 Number of sutures: 4 Technique: simple, interrupted ====== Subcutaneous Layer ====== ====== Muscle Layer ====== ====== Tendon Layer ====== Medical Decision Making MDM Narrative Medical decision making narrative: The patient was evaluated by myself in the emergency department. History is obtained from patient who is an independent historian and physical exam was performed. External medical records were reviewed at this time. Dr. Miles Contreras was contacted at [phone] and case was discussed with him, he was comfortable with me putting in a few stitches and for dissolvable Vicryl sutures were placed at this. Differential diagnosis considerations include wound dehiscence, cellulitis, abscess. Comorbidities impacting this visit include none. I have evaluated and discussed social determinants of health with the patient that could potentially impact subsequent diagnosis and treatment plans. On repeat assessment of the patient, reevaluation revealed that the patient is doing well and is in no acute distress. Patient symptoms have improved since she arrived to our emergency department. Repeat vital signs were all reviewed and noted to be stable. Differential diagnosis and treatment plan were discussed with the patient at bedside. Patient agrees with discussion and after shared medical decision making agrees with discharge. All questions were answered to the patient's satisfaction. Patient will follow up with her OB in 3-5 days. Patient was provided with strict return precautions and instructed to return to the emergency department if any new or worsening symptoms develop. The patient was discharged in stable condition. Vital Signs Vital Signs: Vital Signs Temperature 98.5 F 05/14/24 23:04 Pulse Rate 88 05/14/24 23:04 Respiratory Rate 16 05/14/24 23:04 Blood Pressure 115/53 L 05/14/24 23:04 Pulse Oximetry 100 05/14/24 23:04 Temperature 98.5 F 05/14/24 23:04 Pulse Rate 88 05/14/24 23:04 Respiratory Rate 16 05/14/24 23:04 Blood Pressure 115/53 L 05/14/24 23:04 Pulse Oximetry 100 05/14/24 23:04 Discharge Plan Discharge Clinical Impression: Wound dehiscence Patient Disposition: Home, Self-Care Condition: Improved Instructions: Antibiotic Form, Wound Dehiscence (ED) Additional Instructions: Please follow-up with your OBGYN within the next 3-5 days. Return to the ED if any new or worsening symptoms develop. Patient Language: Citizen [place] Prescriptions: No Action No Home Medications ibuprofen 600 mg tablet 600 mg PO Q6H PRN (Reason: cramps) Qty: 30 0RF ferrous sulfate 325 mg (65 mg iron) tablet 325 mg PO DAILY Qty: 30 0RF Follow-up/Referrals: [facility] [Other] Gokul Almazan MD [Primary Care Provider] - 3 Days UNKNOWN,DOCTOR [Non-Staff] - Time of Disposition: 01:
[2024-05-15] MEDS: LIDOCAINE 1% LOCAL INJ 10 ML VIAL INFILTRATE (02:06)
== END 2024-05-15 02:26 | disposition home or self-care (01) ==
PROVIDERS: Emergency Provider Emergency Medicine; PCP Obstetrics & Gynecology
DX: O90.0 Disruption of cesarean delivery wound (principal)
CPT/HCPCS: 12001; 12020; 99282; J2003